=== PATIENT | male | born 1940 | race Caucasian/White ===

== ENCOUNTER 2017-01-06 08:31 | Emergency (ER) | payer OTHER, MEDICARE ==
[2017-01-06 08:37] VITALS: RESP 16
--- NOTE | 2017-01-06 08:50 | CPEKG ---
Heart Rate: 66 RR Interval: 909 P-R Interval: 228 QRSD Interval: 108 QT Interval: 440 QTC Interval: 461 P [place]: 10 QRS [place]: -17 T Wave [place]: 0 EKG Severity - ABNORMAL ECG - EKG Impression: SINUS RHYTHM EKG Impression: FIRST DEGREE AV BLOCK EKG Impression: BORDERLINE T ABNORMALITIES, INFERIOR LEADS Electronically Signed By: Juan Garibay 06-Jan-2017 09:02:52
[2017-01-06] MEDS ORDERED: NS 1,000 ML IV ONE (08:58)
--- NOTE | 2017-01-06 09:02 | EDPHY ---
H & P Stated Complaint: dizzy Time Seen by Provider: 01/06/17 08:46 HPI/ROS: CHIEF COMPLAINT: Vertigo HISTORY OF PRESENT ILLNESS: The patient is a 76-year-old man who comes to the emergency department complaining of vertigo sensation since he woke this morning. He had something similar yesterday but it resolved after about an hour. He thought that it was from taking his sleep medication. Every night he takes Ambien and Zanaflex to help him sleep. Today it has been more persistent however. He states that is worse when he stands up or moves. When he sits still it tends to resolve. He has not had any nausea vomiting. He denies any focal weakness or deficits. He is able to ambulate but states that he feels off balance. He has normal strength. No recent fevers or trauma. No history of CVA. He does have a history of colon and prostate cancer. He denies lightheadedness or feeling faint. REVIEW OF SYSTEMS: Constitutional: denies: chills, fever, recent illness, recent injury EENTM: denies: blurred vision, double vision, nose congestion Respiratory: denies: cough, shortness of breath Cardiac: See HPI denies: chest pain, irregular heart rate, palpitations Gastrointestinal/Abdominal: denies: abdominal pain, diarrhea, nausea, vomiting, blood streaked stools Genitourinary: denies: dysuria, frequency, hematuria, pain Musculoskeletal: denies: joint pain, muscle pain Skin: denies: lesions, rash, jaundice, bruising Neurological: denies: headache, numbness, paresthesia, tingling, dizziness, weakness Hematologic/Lymphatic: denies: blood clots, easy bleeding, easy bruising Immunologic/allergic: denies: HIV/AIDS, transplant EXAM: GENERAL: Well-appearing, well-nourished and in no acute distress. HEAD: Atraumatic, normocephalic. EYES: Very slight nystagmus to the left that fatigued after the 1st test, Pupils equal round and reactive to light, extraocular movements intact, sclera anicteric, conjunctiva are normal. ENT: TMs normal, nares patent, oropharynx clear without exudates. Moist mucous membranes. NECK: Normal range of motion, supple without lymphadenopathy or JVD. LUNGS: Breath sounds clear to auscultation bilaterally and equal. No wheezes rales or rhonchi. HEART: Regular rate and rhythm without murmurs, rubs or gallops. ABDOMEN: Soft, nontender, normoactive bowel sounds. No guarding, no rebound. No masses appreciated. BACK: No CVA tenderness, no spinal tenderness, step-offs or deformities EXTREMITIES: Normal range of motion, no pitting or edema. No clubbing or cyanosis. NEUROLOGICAL: Cranial nerves II through XII grossly intact. Normal speech, normal gait. 5/5 strength, normal movement in all extremities, normal sensation PSYCH: Normal mood, normal affect. SKIN: Warm, dry, normal turgor, no visible rashes or lesions. Source: Patient Exam Limitations: No limitations - Personal History Current Tetanus/Diphtheria Vaccine: Yes Tetanus Vaccine Date: within 10 years - Medical/Surgical History Hx Asthma: No Hx Chronic Respiratory Disease: No Hx Diabetes: No Hx Cardiac Disease: No Hx Renal Disease: No Hx Cirrhosis: No Hx Alcoholism: No Hx HIV/AIDS: No Hx Splenectomy or Spleen Trauma: No Other PMH: colon CA-2008. (unsure of which side) lung lobectomy-2010. liver resection-2012. arrhythmia. TURP, prostate cancer, panic/anxiety attack - Family History Significant Family History: No pertinent family hx - Social History Smoking Status: Former smoker Alcohol Use: Sober Drug Use: None Constitutional: Initial Vital Signs Temperature (C) 36.6 C 01/06/17 08:35 Heart Rate 67 01/06/17 08:35 Respiratory Rate 16 01/06/17 08:35 Blood Pressure 130/100 H 01/06/17 08:35 O2 Sat (%) 95 01/06/17 08:35 O2 Delivery Mode Room Air Allergies/Adverse Reactions: No Allergies [NKDA] Allergy (Verified 01/06/17 08:35) Home Medications: Medication Instructions Recorded Aspirin [Aspirin 81mg (*)] 81 mg PO DAILY 07/22/15 Calcium Carbonate [Oyster Shell 500 mg PO DAILY 07/22/15 Calcium 500 mg (*)] Cholecalciferol Vit D3 [Vitamin D3 2,000 units PO DAILY 07/22/15 (*)] Finasteride [Proscar 5 MG (*)] 5 mg PO DAILY 07/22/15 METOPROLOL SUCCINATE 12.5 mg PO DAILY 07/22/15 Melatonin [Melatonin 3 MG (*)] 3 mg PO HS PRN 07/22/15 Omeprazole [Prilosec 20 mg] 20 mg PO DAILY 07/22/15 ZOLPIDEM TARTRATE 5 mg PO HS PRN 07/22/15 Cholecalciferol Vit D3 [Vitamin D] 2,000 units PO DAILY 11/30/15 Herbals/Supplements -Info Only 1 ea PO DAILY 11/30/15 Simvastatin [Zocor] 20 mg PO DAILY 11/30/15 Tizanidine HCl 4 - 8 mg PO HS PRN 11/30/15 Meclizine HCl [Meclizine HCl 25 mg 25 mg PO BID #20 tab 01/06/17 (RX,OTC)] Medical Decision Making - Diagnostics EKG Interpretation: An EKG obtained and was read and documented in trace view. Please see trace view for full reading and report. Sinus rhythm, first-degree block, no acute ischemic changes, similar to previous Imaging Results: Imaging Impressions Brain MRI 01/06/17 08:58 Impression: Negative for acute abnormality. Underlying atrophy and white matter disease. A small venous angioma and associated gyral thickening identified in the left parietal lobe, unchanged from prior head CT. Results called to Dr. Garibay at 10:45 a.m. Imaging: Discussed imaging studies w/ bilingual call center representative Radiologist ED Course/Re-evaluation: 11:00 a.m. we discussed the MRI results. The patient is relieved as is his . He is feeling much better. He does still have slight vertigo with sitting up but not with lying down on Hallpike maneuver. He does have mild nystagmus primarily to the left. I will start him on meclizine and have him follow up with ENT. 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 He will also discussed this with the ENT. We discussed indications for returning. He denies chest pain or shortness of breath. Differential Diagnosis: Partial list of the Differential diagnosis considered include but were not limited to; vertigo , syncope and although unlikely based on the history and physical exam, I also considered head injury, infection, CVA, seizure. I discussed these differential diagnoses and the plan with the patient as well as the usual and expected course. The patient understands that the diagnosis is provisional and that in medicine we are not always correct and that further workup is often warranted. Usual and customary warnings were given. All of the patient's questions were answered. The patient was instructed to return to the emergency department should the symptoms at all worsen or return, otherwise to followup with the physician as we discussed. - Data Points Laboratory Results: Laboratory Results 01/06/17 08:55 01/06/17 08:55 01/06/17 01/06/17 01/06/17 08:55 08:55 08:55 WBC 7.09 10^3/uL 10^3/uL (3.80-9.50) RBC 5.00 10^6/uL 10^6/uL (4.40-6.38) Hgb 17.0 g/dL g/dL (13.7-17.5) Hct 48.2 % % (40.0-51.0) MCV 96.4 fL fL (81.5-99.8) MCH 34.0 pg pg (27.9-34.1) MCHC 35.3 g/dL g/dL (32.4-36.7) RDW 12.9 % % (11.5-15.2) Plt Count 144 10^3/uL L 10^3/uL (150-400) MPV 9.4 fL fL (8.7-11.7) Neut % (Auto) 64.6 % % (39.3-74.2) Lymph % (Auto) 25.2 % % (15.0-45.0) [place] % (Auto) 6.3 % % (4.5-13.0) Eos % (Auto) 3.1 % % (0.6-7.6) Baso % (Auto) 0.4 % % (0.3-1.7) Nucleat RBC Rel Count 0.0 % % (0.0-0.2) Absolute Neuts (auto) 4.57 10^3/uL 10^3/uL (1.70-6.50) Absolute Lymphs (auto) 1.79 10^3/uL 10^3/uL (1.00-3.00) Absolute Monos (auto) 0.45 10^3/uL 10^3/uL (0.30-0.80) Absolute Eos (auto) 0.22 10^3/uL 10^3/uL (0.03-0.40) Absolute Basos (auto) 0.03 10^3/uL 10^3/uL (0.02-0.10) Absolute Nucleated RBC 0.00 10^3/uL 10^3/uL (0-0.01) Immature Gran % 0.4 % % (0.0-1.1) Immature Gran # 0.03 10^3/uL 10^3/uL (0.00-0.10) PT 12.6 SEC SEC (12.0-15.0) INR 0.95 (0.83-1.16) APTT 23.6 SEC SEC (23.0-38.0) Sodium 141 mEq/L mEq/L (134-144) Potassium 4.1 mEq/L mEq/L (3.5-5.2) Chloride 103 mEq/L mEq/L (97-110) Carbon Dioxide 24 mEq/l mEq/l (22-31) Anion Gap 14 mEq/L mEq/L (8-16) BUN 13 mg/dL mg/dL (7-23) Creatinine 0.9 mg/dL mg/dL (0.7-1.3) Estimated GFR > 60 Glucose 118 mg/dL H mg/dL (70-100) Calcium 9.6 mg/dL mg/dL (8.5-10.4) Troponin I < 0.012 ng/mL ng/mL (0.000-0.034) Medications Given: Discontinued Medications Sodium Chloride (Ns) 1,000 mls @ 0 mls/hr IV EDNOW ONE; Wide Open PRN Reason: Protocol Stop: 01/06/17 08:59 Last Admin: 01/06/17 09:02 Dose: 1,000 mls Departure - Departure Disposition: Home, Routine, Self-Care Clinical Impression: Vertigo Condition: Fair Instructions: Vertigo (ED) Referrals: PAMELA NAPIER [Other] - As per Instructions Oscar Tello MD [Medical Doctor] - As per Instructions Prescriptions: Meclizine HCl [Meclizine HCl 25 mg (RX,OTC)] 25 mg PO BID #20 tab
[2017-01-06 09:05] LABS: % IMMATURE GRANULYOCYTES 0.4 % (0.0-1.1); ABSOLUTE IMMATURE GRANULOCYTES 0.03 10^3/uL (0.00-0.10); ADD DIFF? NO; ADD MORPH? NO; ADD SCAN? NO; ATYPICAL LYMPHOCYTE FLAG 10 (0-99); FRAGMENT RBC FLAG 0 (0-99); HEMATOCRIT 48.2 % (40.0-51.0); LEFT SHIFT FLG 0 (0-99); LIPEMIA HEMOLYSIS FLAG 90 (0-99); MEAN CELL HEMOGLOBIN CONCENTR. 35.3 g/dL (32.4-36.7); MEAN CELL VOLUME 96.4 fL (81.5-99.8); MEAN PLATELET VOLUME 9.4 fL (8.7-11.7); PLATELET CLUMPS FLAG 10 (0-99); PLATELET COUNT 144 10^3/uL (150-400); RED CELL DISTRIBUTION WIDTH 12.9 % (11.5-15.2)
[2017-01-06 09:15] LABS: ANION GAP 14 mEq/L (8-16); CALCIUM 9.6 mg/dL (8.5-10.4); CARBON DIOXIDE 24 mEq/l (22-31); CHLORIDE 103 mEq/L (97-110); CREATININE 0.9 mg/dL (0.7-1.3); GLOMERULAR FILTRATION RATE > 60; GLUCOSE 118 mg/dL (70-100); POTASSIUM 4.1 mEq/L (3.5-5.2); SODIUM 141 mEq/L (134-144)
[2017-01-06 09:20] LABS: INR 0.95 (0.83-1.16); PROTIME(PATIENT) 12.6 SEC (12.0-15.0)
[2017-01-06 09:21] LABS: APTT 23.6 SEC (23.0-38.0)
[2017-01-06 09:26] LABS: TROPONIN I < 0.012 ng/mL (0.000-0.034)
[2017-01-06] MEDS ORDERED: GADOBUTROL 10 ML VIAL IVP ONE (09:35)
[2017-01-06] MEDS ORDERED: MECLIZINE HCL 25 MG TAB PO ONE (11:03)
[2017-01-06 11:20] VITALS: BP 125/74; PULSE 70; TEMP 98.2; O2SAT 98
== END 2017-01-06 11:18 | disposition home or self-care (01) ==
DX: R42 Dizziness and giddiness (principal); E86.9 Volume depletion, unspecified; Z79.82 Long term (current) use of aspirin; Z85.038 Personal history of other malignant neoplasm of large intestine; Z85.46 Personal history of malignant neoplasm of prostate; Z87.891 Personal history of nicotine dependence
CPT/HCPCS: 70553; 93005; 99285; A9585

== ENCOUNTER → 2017-06-02 | Outpatient (CLI) | payer OTHER, MEDICARE ==
[~2017-06-02] MED LIST: IOPAMIDOL (ISOVUE-300) 100 ML BTL ONE
== END ==
LOC: FIMAGING 10:02
PROVIDERS: ATTEND Specialist
DX: R31.0 Gross hematuria (principal); K76.89 Other specified diseases of liver; K40.90 Unilateral inguinal hernia, without obstruction or gangrene, not specified as recurrent; M48.061 Spinal stenosis, lumbar region without neurogenic claudication
CPT/HCPCS: 74178; Q9967

== ENCOUNTER 2017-09-25 17:24 | Emergency (ER) | payer OTHER, MEDICARE ==
[2017-09-25] MEDS ORDERED: NS 1,000 ML IV ONE (18:11)
--- NOTE | 2017-09-25 18:15 | EDPHY ---
H & P Stated Complaint: syncopal episode last night, 2 today, blood urine for 4 days Time Seen by Provider: 09/25/17 17:57 HPI/ROS: CHIEF COMPLAINT: Micturition syncope x3 HISTORY OF PRESENT ILLNESS: The patient is a 76-year-old man who had micturition presyncope last night and twice more today. He has a history of prostate hypertrophy status post TURP. He states that he frequently has hematuria but he usually resolves after a day or 2. It is been present for the last 3 days. He states that he is also urinating about every 15 min because it is irritating. Last night while urinating he felt lightheaded and had sit down. His states that he looked pale and diaphoretic. She called 911 and he had normal blood pressure an EKG done and refused transport. He did not vomit or have any GI symptoms. He did not lose consciousness. He did not have any trauma pain He denies palpitations or chest pain. The same thing happened twice today to a lesser degree. He does have a history of arrhythmia of uncertain etiology and takes metoprolol for this although he forgot his metoprolol the last 2 days. He also has a history of metastatic colon cancer metastasized to the liver and lung with partial colon resection, liver section and left lower lobe of lung resection. He has not been febrile. He has been eating normally. No fevers. He does state that he has been easily winded while walking up the stairs today. He has also been able to urinate several times without having any presyncopal symptoms. REVIEW OF SYSTEMS: Constitutional: denies: chills, fever, recent illness, recent injury EENTM: denies: blurred vision, double vision, nose congestion Respiratory: denies: cough, shortness of breath Cardiac: See HPI denies: chest pain, irregular heart rate, palpitations Gastrointestinal/Abdominal: denies: abdominal pain, diarrhea, nausea, vomiting, blood streaked stools Genitourinary: See HPI denies: dysuria, pain Musculoskeletal: denies: joint pain, muscle pain Skin: denies: lesions, rash, jaundice, bruising Neurological: denies: headache, numbness, paresthesia, tingling, dizziness, weakness Hematologic/Lymphatic: denies: blood clots, easy bleeding, easy bruising Immunologic/allergic: denies: HIV/AIDS, transplant EXAM: GENERAL: Well-appearing, well-nourished and in no acute distress. HEAD: Atraumatic, normocephalic. EYES: Pupils equal round and reactive to light, extraocular movements intact, sclera anicteric, conjunctiva are normal. ENT: TMs normal, nares patent, oropharynx clear without exudates. Moist mucous membranes. NECK: Normal range of motion, supple without lymphadenopathy or JVD. LUNGS: Breath sounds clear to auscultation bilaterally and equal. No wheezes rales or rhonchi. HEART: Regular rate and rhythm without murmurs, rubs or gallops. ABDOMEN: Soft, nontender, normoactive bowel sounds. No guarding, no rebound. No masses appreciated. BACK: No CVA tenderness, no spinal tenderness, step-offs or deformities EXTREMITIES: Normal range of motion, no pitting or edema. No clubbing or cyanosis. NEUROLOGICAL: Cranial nerves II through XII grossly intact. Normal speech, normal gait. 5/5 strength, normal movement in all extremities, normal sensation PSYCH: Normal mood, normal affect. SKIN: Warm, dry, normal turgor, no visible rashes or lesions. Source: Patient Exam Limitations: No limitations - Personal History Tetanus Vaccine Date: within 10 years - Medical/Surgical History Hx Asthma: No Hx Chronic Respiratory Disease: No Hx Diabetes: No Hx Cardiac Disease: No Hx Renal Disease: No Hx Cirrhosis: No Hx Alcoholism: No Hx HIV/AIDS: No Hx Splenectomy or Spleen Trauma: No Other PMH: colon CA-2008. lung lobectomy-2010. liver resection-2012. arrhythmia. TURP, prostate cancer, panic/anxiety attack - Family History Significant Family History: No pertinent family hx - Social History Smoking Status: Former smoker Alcohol Use: Sober Constitutional: Initial Vital Signs Temperature (C) 37 C 09/25/17 17:28 Heart Rate 72 09/25/17 17:28 Respiratory Rate 19 09/25/17 17:28 Blood Pressure 120/86 H 09/25/17 17:28 O2 Sat (%) 96 09/25/17 17:28 O2 Delivery Mode Room Air Allergies/Adverse Reactions: No Allergies [NKDA] Allergy (Verified 09/25/17 17:26) Home Medications: Medication Instructions Recorded Aspirin [Aspirin 81mg (*)] 81 mg PO DAILY 07/22/15 Calcium Carbonate [Oyster Shell 500 mg PO DAILY 07/22/15 Calcium 500 mg (*)] Cholecalciferol Vit D3 [Vitamin D3 2,000 units PO DAILY 07/22/15 (*)] Finasteride [Proscar 5 MG (*)] 5 mg PO DAILY 07/22/15 METOPROLOL SUCCINATE 12.5 mg PO DAILY 07/22/15 Melatonin [Melatonin 3 MG (*)] 3 mg PO HS PRN 07/22/15 Omeprazole [Prilosec 20 mg] 20 mg PO DAILY 07/22/15 ZOLPIDEM TARTRATE 5 mg PO HS PRN 07/22/15 Cholecalciferol Vit D3 [Vitamin D] 2,000 units PO DAILY 11/30/15 Herbals/Supplements -Info Only 1 ea PO DAILY 11/30/15 Simvastatin [Zocor] 20 mg PO DAILY 11/30/15 Tizanidine HCl 4 - 8 mg PO HS PRN 11/30/15 Meclizine HCl [Meclizine HCl 25 mg 25 mg PO BID #20 tab 01/06/17 (RX,OTC)] Medical Decision Making - Diagnostics EKG Interpretation: An EKG obtained and was read and documented in trace view. Please see trace view for full reading and report. Sinus rhythm, no acute ischemic changes or arrhythmias ED Course/Re-evaluation: 7:20 p.m. we discussed the patient's lab work which is reassuring. His urinalysis is difficult to interpret because of the hematuria. No bacteria or nitrates. He denies pain or fever. He states that he is starting to pass clots in his urine which is typical for him when it is about to stop. He feels much better and is eager to go home. I offered admission or observation but he declines. His is with him. We discussed micturition syncope. I encouraged him to sit down when he urinates. I encouraged him to return if he has any palpitations or chest pain or shortness of breath. He will follow up with Dr. Simeon next week. We agreed to send his urine for cultures. Differential Diagnosis: Partial list of the Differential diagnosis considered include but were not limited to; hematuria, micturition syncope, urinary tract infection and although unlikely based on the history and physical exam, I also considered arrhythmia, acute coronary disease, PE, CVA. I discussed these differential diagnoses and the plan with the patient as well as the usual and expected course. The patient understands that the diagnosis is provisional and that in medicine we are not always correct and that further workup is often warranted. Usual and customary warnings were given. All of the patient's questions were answered. The patient was instructed to return to the emergency department should the symptoms at all worsen or return, otherwise to followup with the physician as we discussed. - Data Points Laboratory Results: Laboratory Results 09/25/17 18:18 09/25/17 18:18 09/25/17 09/25/17 09/25/17 18:50 18:18 18:18 WBC RBC Hgb Hct MCV MCH MCHC RDW Plt Count MPV Neut % (Auto) Lymph % (Auto) [place] % (Auto) Eos % (Auto) Baso % (Auto) Nucleat RBC Rel Count Absolute Neuts (auto) Absolute Lymphs (auto) Absolute Monos (auto) Absolute Eos (auto) Absolute Basos (auto) Absolute Nucleated RBC Immature Gran % Immature Gran # PT 13.8 SEC SEC (12.0-15.0) INR 1.04 (0.83-1.16) APTT 22.8 SEC L SEC (23.0-38.0) Sodium 136 mEq/L mEq/L (135-145) Potassium 4.4 mEq/L mEq/L (3.5-5.2) Chloride 101 mEq/L mEq/L (97-110) Carbon Dioxide 23 mEq/l mEq/l (22-31) Anion Gap 12 mEq/L mEq/L (8-16) BUN 15 mg/dL mg/dL (7-23) Creatinine 0.8 mg/dL mg/dL (0.7-1.3) Estimated GFR > 60 Glucose 114 mg/dL H mg/dL (70-100) Calcium 9.2 mg/dL mg/dL (8.5-10.4) Total Bilirubin 1.3 mg/dL mg/dL (0.1-1.4) Conjugated Bilirubin 0.3 mg/dL mg/dL (0.0-0.5) Unconjugated Bilirubin 1.0 mg/dL mg/dL (0.0-1.1) AST 24 IU/L IU/L (17-59) ALT 32 IU/L IU/L (21-72) Alkaline Phosphatase 47 IU/L IU/L (38-126) Total Protein 7.3 g/dL g/dL (6.3-8.2) Albumin 3.9 g/dL g/dL (3.5-5.0) Lipase 68 IU/L IU/L (23-300) Urine Color RED Urine Appearance TURBID Urine pH TNP Ur Specific [place] TNP Urine Protein TNP Urine Ketones TNP Urine Blood TNP Urine Nitrate TNP Urine Bilirubin TNP Urine Urobilinogen TNP Ur Leukocyte Esterase TNP Urine RBC 50-182 /hpf H /hpf (0-3) Urine WBC 50-182 /hpf H /hpf (0-3) Ur Epithelial Cells NONE SEEN /lpf /lpf (NONE-1+) Urine Mucus 3+ /lpf H /lpf (NONE-1+) Urine Glucose TNP 09/25/17 18:18 WBC 10.38 10^3/uL H 10^3/uL (3.80-9.50) RBC 4.21 10^6/uL L 10^6/uL (4.40-6.38) Hgb 14.1 g/dL g/dL (13.7-17.5) Hct 39.3 % L % (40.0-51.0) MCV 93.3 fL fL (81.5-99.8) MCH 33.5 pg pg (27.9-34.1) MCHC 35.9 g/dL g/dL (32.4-36.7) RDW 13.1 % % (11.5-15.2) Plt Count 164 10^3/uL 10^3/uL (150-400) MPV 9.4 fL fL (8.7-11.7) Neut % (Auto) 72.6 % % (39.3-74.2) Lymph % (Auto) 19.9 % % (15.0-45.0) [place] % (Auto) 6.6 % % (4.5-13.0) Eos % (Auto) 0.4 % L % (0.6-7.6) Baso % (Auto) 0.3 % % (0.3-1.7) Nucleat RBC Rel Count 0.0 % % (0.0-0.2) Absolute Neuts (auto) 7.54 10^3/uL H 10^3/uL (1.70-6.50) Absolute Lymphs (auto) 2.07 10^3/uL 10^3/uL (1.00-3.00) Absolute Monos (auto) 0.68 10^3/uL 10^3/uL (0.30-0.80) Absolute Eos (auto) 0.04 10^3/uL 10^3/uL (0.03-0.40) Absolute Basos (auto) 0.03 10^3/uL 10^3/uL (0.02-0.10) Absolute Nucleated RBC 0.00 10^3/uL 10^3/uL (0-0.01) Immature Gran % 0.2 % % (0.0-1.1) Immature Gran # 0.02 10^3/uL 10^3/uL (0.00-0.10) PT INR APTT Sodium Potassium Chloride Carbon Dioxide Anion Gap BUN Creatinine Estimated GFR Glucose Calcium Total Bilirubin Conjugated Bilirubin Unconjugated Bilirubin AST ALT Alkaline Phosphatase Total Protein Albumin Lipase Urine Color Urine Appearance Urine pH Ur Specific [place] Urine Protein Urine Ketones Urine Blood Urine Nitrate Urine Bilirubin Urine Urobilinogen Ur Leukocyte Esterase Urine RBC Urine WBC Ur Epithelial Cells Urine Mucus Urine Glucose Medications Given: Discontinued Medications Sodium Chloride (Ns) 1,000 mls @ 0 mls/hr IV EDNOW ONE; Wide Open PRN Reason: Protocol Stop: 09/25/17 18:12 Last Admin: 09/25/17 18:55 Dose: 1,000 mls Departure - Departure Disposition: Home, Routine, Self-Care Clinical Impression: Micturition syncope Condition: Fair Instructions: Syncope (ED), Hematuria (ED) Referrals: RONI NAPIER [Other] - As per Instructions Jamaal Simeon MD [Medical Doctor] - As per Instructions
[2017-09-25 18:27] LABS: PLATELET COUNT 164 10^3/uL (150-400)
--- NOTE | 2017-09-25 18:30 | CPEKG ---
Heart Rate: 77 RR Interval: 779 P-R Interval: 196 QRSD Interval: 96 QT Interval: 380 QTC Interval: 431 P [place]: 3 QRS [place]: -11 T Wave [place]: 5 EKG Severity - NORMAL ECG - EKG Impression: SINUS RHYTHM Electronically Signed By: Juan Garibay 25-Sep-2017 18:32:12
[2017-09-25 18:35] LABS: INR 1.04 (0.83-1.16); PROTIME(PATIENT) 13.8 SEC (12.0-15.0)
[2017-09-25 19:40] VITALS: BP 115/79
== END 2017-09-25 19:37 | disposition home or self-care (01) ==
DX: R55 Syncope and collapse (principal); E86.9 Volume depletion, unspecified; Z79.82 Long term (current) use of aspirin; Z85.038 Personal history of other malignant neoplasm of large intestine; Z85.46 Personal history of malignant neoplasm of prostate; Z87.891 Personal history of nicotine dependence

== ENCOUNTER → 2017-09-30 | Outpatient (CLI) | payer OTHER, MEDICARE | LOC: CIMAGING 08:27 | DX: R91.1 Solitary pulmonary nodule (principal); N40.0 Benign prostatic hyperplasia without lower urinary tract symptoms; K57.30 Diverticulosis of large intestine without perforation or abscess without bleeding; N20.0 Calculus of kidney; Z85.038 Personal history of other malignant neoplasm of large intestine; Z85.118 Personal history of other malignant neoplasm of bronchus and lung; Z85.05 Personal history of malignant neoplasm of liver; Z90.2 Acquired absence of lung [part of]; Z90.49 Acquired absence of other specified parts of digestive tract | CPT/HCPCS: 71260-PO; 74177-PO; Q9967 ==

== ENCOUNTER 2017-10-18 09:38 | Emergency (ER) | payer OTHER, MEDICARE ==
[2017-10-18 09:57] VITALS: BP 125/79
--- NOTE | 2017-10-18 10:33 | EDPHY ---
H & P Stated Complaint: urinary frequency and pain - Personal History Current Tetanus/Diphtheria Vaccine: Yes Current Tetanus Diphtheria and Acellular Pertussis (TDAP): Yes Tetanus Vaccine Date: within 10 years - Medical/Surgical History Hx Asthma: No Hx Chronic Respiratory Disease: No Hx Diabetes: No Hx Cardiac Disease: Yes Hx Renal Disease: No Hx Cirrhosis: No Hx Alcoholism: No Hx HIV/AIDS: No Hx Splenectomy or Spleen Trauma: No Other PMH: colon CA-2008. lung lobectomy-2010. liver resection-2012. arrhythmia. TURP, prostate cancer, panic/anxiety attack - Social History Smoking Status: Former smoker Time Seen by Provider: 10/18/17 09:56 HPI/ROS: CHIEF COMPLAINT: "I think I have urinary tract infection" HISTORY OF PRESENT ILLNESS: 76-year-old male history of prostate hypertrophy followed by Dr. Jamaal Simeon complaining of hematuria increased frequency, dysuria for the past 2 days. No back or flank pain. No fever or chills. No abdominal pain. No perineal pain. No rectal pain. No pain with defecation. PRIMARY CARE PROVIDER: REVIEW OF SYSTEMS: A ten point review of systems was performed and is negative with the exception of the items mentioned in the HPI PAST MEDICAL & SURGICAL HISTORY: History of prostate hypertrophy. History of colon cancer. History of liver resection. SOCIAL HISTORY: Nonsmoker . PHYSICAL EXAM (Prior to examination, patient consented to physical exam, hands were washed and my usual and customary physical exam procedures followed) 1) GENERAL: Well-developed, well-nourished, alert and oriented. Appears to be in no acute distress. Smiling, reading newspaper sitting upright appears well. 2) HEAD: Normocephalic, atraumatic 3) HEENT: Pupils equal, round, reactive to light bilaterally. Sclera anicteric. 4) NECK: Full range of motion, no meningeal signs. 5) LUNGS: Clear auscultation bilaterally, no wheezes, no rhonchi, no retractions. 6) HEART: Regular rate and rhythm, no murmur, no heave, no gallop. 7) ABDOMEN: No guarding, no rebound, no focal tenderness, negative McBurney's, negative Lieberman's, negative Rovsing's, negative peritoneal sign, 8) MUSCULOSKELETAL: Moving all extremities, no focal areas of tenderness, no obvious trauma. No peripheral edema or discoloration. 9) BACK: No CVA tenderness, no midline vertebral tenderness, no fluctuance, no step-off, no obvious trauma, no visual or palpable abnormality. 10) SKIN: No rash, no petechiae. [11) : Normal male external genitalia no urethral discharge, no discoloration or tenderness to the penis. Scrotum testicles nontender with no discoloration no evidence of cellulitis or Nori's gangrene. Perineal examination unremarkable no tenderness no crepitus. DIFFERENTIAL DIAGNOSIS: In no particular include but limited to nephrolithiasis, cystitis, pyelonephritis, urosepsis (Bryant Faith) Constitutional: Initial Vital Signs Heart Rate 71 10/18/17 09:45 Respiratory Rate 16 10/18/17 09:45 Blood Pressure 125/79 H 10/18/17 09:45 O2 Sat (%) 95 10/18/17 09:45 O2 Delivery Mode Room Air Allergies/Adverse Reactions: No Allergies [NKDA] Allergy (Verified 10/18/17 09:44) Home Medications: Medication Instructions Recorded Aspirin [Aspirin 81mg (*)] 81 mg PO DAILY 07/22/15 Calcium Carbonate [Oyster Shell 500 mg PO DAILY 07/22/15 Calcium 500 mg (*)] Cholecalciferol Vit D3 [Vitamin D3 2,000 units PO DAILY 07/22/15 (*)] Finasteride [Proscar 5 MG (*)] 5 mg PO DAILY 07/22/15 METOPROLOL SUCCINATE 12.5 mg PO DAILY 07/22/15 Melatonin [Melatonin 3 MG (*)] 3 mg PO HS PRN 07/22/15 Omeprazole [Prilosec 20 mg] 20 mg PO DAILY 07/22/15 ZOLPIDEM TARTRATE 5 mg PO HS PRN 07/22/15 Cholecalciferol Vit D3 [Vitamin D] 2,000 units PO DAILY 11/30/15 Herbals/Supplements -Info Only 1 ea PO DAILY 11/30/15 Simvastatin [Zocor] 20 mg PO DAILY 11/30/15 Tizanidine HCl 4 - 8 mg PO HS PRN 11/30/15 Meclizine HCl [Meclizine HCl 25 mg 25 mg PO BID #20 tab 01/06/17 (RX,OTC)] Cephalexin [Keflex] 500 mg PO TID 7 Days cap 10/18/17 Cialis 10/18/17 Phenazopyridine HCl [Pyridium] 200 mg PO PC #10 tab 10/18/17 Medical Decision Making ED Course/Re-evaluation: Patient was re-evaluated with serial examinations and old medical records reviewed. Here in emergency department he is found to positive pyuria. Doubt pyelonephritis. Doubt nephrolithiasis. Doubt urosepsis. Doubt diverticulitis. I think the patient can be discharged with close follow-up with urologist Dr. Jamaal Simeon. Urine has been cultured. Started on antibiotics and Pyridium. He feels comfortable being discharged. Usual and customary discharge precautions and instructions provided. All questions and concerns addressed by myself. I saw this patient independently based on established practice protocols. Care of patient under supervision of secondary supervising physician Dr Robbins (Bryant Faith) The patient was evaluated and managed by the physician assistant pressman. I have reviewed this chart and I agree with the findings and plan of care as documented , as indicated by my signature. I am the secondary supervising physician. ( Lorraine Robbins) - Data Points Microbiology Results: MICROBIOLOGY 10/18/17 09:50 Urine,Clean Catch Urine Culture - Preliminary Departure - Departure Disposition: Home, Routine, Self-Care Clinical Impression: Urinary tract infection Condition: Good Instructions: Urinary Tract Infection in Men (ED) Additional Instructions: Return to the ER immediately if you experience fevers/chills, flu like symptoms , inability to tolerate oral intake, nausea or vomiting, or any other symptoms that concern you. Referrals: RONI NAPIER [Other] - As per Instructions Jamaal Simeon MD [Medical Doctor] - 2-3 days, call for appt. Prescriptions: Cephalexin [Keflex] 500 mg PO TID 7 Days cap Phenazopyridine HCl [Pyridium] 200 mg PO PC #10 tab
== END 2017-10-18 10:47 | disposition home or self-care (01) ==
DX: N39.0 Urinary tract infection, site not specified (principal); B96.89 Other specified bacterial agents as the cause of diseases classified elsewhere; Z85.038 Personal history of other malignant neoplasm of large intestine; Z87.891 Personal history of nicotine dependence

== ENCOUNTER 2017-10-26 10:07 | Emergency (ER) | payer OTHER, MEDICARE ==
--- NOTE | 2017-10-26 11:07 | EDPHY ---
H & P Stated Complaint: urethral pain Time Seen by Provider: 10/26/17 11:06 HPI/ROS: HPI: This is a 76-year-old male who presents with Chief Complaint: urethral pain Location: Urethra/penile shaft Quality: Pain and spasm Duration: Several hours Signs and Symptoms: no fever, no nausea, no vomiting, no hematemesis, no blood in stool, no abdominal bloating, no diarrhea, no back pain, no urinary symptoms , no testicular/groin pain, no indigestion, no chest pain, no shortness of breath Timing: Acute Severity: Moderate Context: Patient has a history of BPH, status post TURP secondary to prostate cancer, urinary tract infection and Takes Proscar daily presents with complaints of urethra/penile shaft pain and spasm for the last several hours. Patient is requesting of"pain pill"and "Pyridium." Patient reports that he has a history of a kidney stone on the right side that he may be passing but is adamant that he does not want any laboratory studies or repeat CT imaging. He is willing to give a urine sample for further analysis. He recently completed a 2 week course of antibiotics for UTI/prostatitis. He was seen in this emergency room on 10/18/2017 and diagnosed with pyuria. He reports that he does not have any blood in his urine. Patient denies fever/back pain/penile discharge. He follows with Dr. Jamaal Simeon, urology. He called the office today but was unable to get an appointment. Patient is eating and drinking without any difficulty. Chart review shows CT abdomen and pelvis scan on 2017 showed 2 mm nephrolithiasis without obstruction; markedly enlarged prostate. Modifying Factors: None Comment: ROS: see HPI Constitutional: No fever, no chills, no weight loss Eyes: No blurred vision Respiratory: No shortness of breath, no cough Cardiovascular: No chest pain, no palpitations Gastrointestinal: No nausea, no vomiting, no diarrhea, no hematemesis, no blood in stool Genitourinary: No dysuria, no blood in urine Extremities: No myalgias, no edema Neurologic: No weakness, no numbness Skin: No rashes, no petechiae Hematologic: No bruising, no bleeding MEDICAL/SURGICAL/SOCIAL HISTORY: Medical/surgical history: colon CA-2009 lung lobectomy-2010 liver resection-2012 arrhythmia TURP, prostate cancer, panic/anxiety attack Social history: Retired. Family history noncontributory. CONSTITUTIONAL: Extremely well-appearing elderly white male, awake and alert, no obvious distress HEENT: Atraumatic and normocephalic, PERRL, EOMI. Nares patent; no rhinorrhea; no nasal mucosal edema. Tympanic membranes clear. Oropharynx clear, no exudate and moist pink mucosa. Airway patent. No lymphadenopathy. No meningismus. Cardiovascular: Normal S1/S2, regular rate, regular rhythm, without murmur rub or gallop. PULMONARY/CHEST: Symmetrical and nontender. Clear to auscultation bilaterally. Good air movement. No accessory muscle usage. ABDOMEN: Soft, nondistended, nontender, no rebound, no guarding, no peritoneal signs, no masses or organomegaly. No CVAT. Male : circumcised penis, bilateral descended testes, no testicular swelling, no testicular masses, no penile discharge, no lesions, negative Prehn's sign. EXTREMITIES: 2/2 pulses, strength 5/5, no deformities, no clubbing, no cyanosis or edema. NEUROLOGICAL: no focal neuro deficits. GCS 15. SKIN: Warm and dry, pallor, no erythema. no rash. Good capillary refill. Source: Patient Exam Limitations: No limitations - Personal History Current Tetanus/Diphtheria Vaccine: Yes Current Tetanus Diphtheria and Acellular Pertussis (TDAP): Yes Tetanus Vaccine Date: within 10 years - Medical/Surgical History Hx Asthma: No Hx Chronic Respiratory Disease: No Hx Diabetes: No Hx Cardiac Disease: Yes Hx Renal Disease: No Hx Cirrhosis: No Hx Alcoholism: No Hx HIV/AIDS: No Hx Splenectomy or Spleen Trauma: No Other PMH: colon CA-2008. lung lobectomy-2010. liver resection-2012. arrhythmia. TURP, prostate cancer, panic/anxiety attack - Social History Smoking Status: Former smoker Constitutional: Initial Vital Signs Temperature (C) 36.7 C 10/26/17 10:28 Heart Rate 75 10/26/17 10:28 Respiratory Rate 16 10/26/17 10:28 Blood Pressure 125/80 H 10/26/17 10:28 O2 Sat (%) 97 10/26/17 10:28 O2 Delivery Mode Room Air Allergies/Adverse Reactions: No Allergies [NKDA] Allergy (Verified 10/26/17 10:27) Home Medications: Medication Instructions Recorded Aspirin [Aspirin 81mg (*)] 81 mg PO DAILY 07/22/15 Calcium Carbonate [Oyster Shell 500 mg PO DAILY 07/22/15 Calcium 500 mg (*)] Cholecalciferol Vit D3 [Vitamin D3 2,000 units PO DAILY 07/22/15 (*)] Finasteride [Proscar 5 MG (*)] 5 mg PO DAILY 07/22/15 METOPROLOL SUCCINATE 12.5 mg PO DAILY 07/22/15 Melatonin [Melatonin 3 MG (*)] 3 mg PO HS PRN 07/22/15 Omeprazole [Prilosec 20 mg] 20 mg PO DAILY 07/22/15 ZOLPIDEM TARTRATE 5 mg PO HS PRN 07/22/15 Cholecalciferol Vit D3 [Vitamin D] 2,000 units PO DAILY 11/30/15 Herbals/Supplements -Info Only 1 ea PO DAILY 11/30/15 Simvastatin [Zocor] 20 mg PO DAILY 11/30/15 Tizanidine HCl 4 - 8 mg PO HS PRN 11/30/15 Meclizine HCl [Meclizine HCl 25 mg 25 mg PO BID #20 tab 01/06/17 (RX,OTC)] Cialis 10/18/17 Phenazopyridine HCl [Pyridium] 200 mg PO PC #10 tab 10/18/17 Phenazopyridine HCl [Pyridium] 200 mg PO TID #6 tab 10/26/17 oxyCODONE/APAP 5/325 [Percocet 1 - 2 tab PO Q4H PRN #10 tab 10/26/17 5/325 (*)] Medical Decision Making ED Course/Re-evaluation: Vital signs reviewed upon arrival in stable. I offered patient laboratory studies, IV fluids, IV medications, and CT abdomen and pelvis scanning and he adamantly declined. He reports that all he needs is "the pill that makes his urine orange and pain pill." Patient given Pyridium and Percocet per request. Urinalysis shows 1+ protein, 3+ blood, RBC 3-5. This is significantly improved when compared to the urine sample taken on 10/18/2017. Patient will be given a prescription for peridium and Percocet per request with Urology follow-up. Abdomen is soft and nontender doubt surgical process. Patient is very adamant about not having a complete workup and just having a prescription. Patient is tolerating p.o. This patient was seen under the supervision of my secondary supervising physician. I evaluated care for this patient independently. Discussed this patient with Dr. Pulliam who did not see the patient. Differential Diagnosis: Differential diagnosis includes but is not limited to urinary tract infection, prostatitis, bladder spasm, nephrolithiasis, ureterolithiasis. - Data Points Laboratory Results: 10/26/17 10:15 Urine Color YELLOW Urine Appearance HAZY Urine pH 5.0 (5.0-7.5) Ur Specific [place] 1.002 (1.002-1.030) Urine Protein 1+ H (NEGATIVE) Urine Ketones NEGATIVE (NEGATIVE) Urine Blood 3+ H (NEGATIVE) Urine Nitrate NEGATIVE (NEGATIVE) Urine Bilirubin NEGATIVE (NEGATIVE) Urine Urobilinogen NEGATIVE EU EU (0.2-1.0) Ur Leukocyte Esterase NEGATIVE (NEGATIVE) Urine RBC 3-5 /hpf H /hpf (0-3) Urine WBC 0-1 /hpf /hpf (0-3) Ur Epithelial Cells NONE SEEN /lpf /lpf (NONE-1+) Urine Mucus TRACE /lpf /lpf (NONE-1+) Urine Glucose NEGATIVE (NEGATIVE) Medications Given: Discontinued Medications Oxycodone/Acetaminophen (Percocet 5/325) 1 tab PO EDNOW ONE Stop: 10/26/17 11:18 Last Admin: 10/26/17 11:26 Dose: 1 tab Phenazopyridine HCl (Pyridium) 200 mg PO EDNOW ONE Stop: 10/26/17 11:18 Last Admin: 10/26/17 11:26 Dose: 200 mg Departure - Departure Disposition: Home, Routine, Self-Care Clinical Impression: Dysuria, BPH w/o urinary obs/LUTS Condition: Good Instructions: Benign Prostatic Hypertrophy (ED), Dysuria (ED) Additional Instructions: Consume a minimum of 8-10 glasses of water or electrolyte fluid replacement drinks that include Gatorade, Powerade, Pedialyte. Take Pyridium 3 times daily for the next 2 days as needed for dysuria. Take Percocet 1 tab every 4-6 hours as needed for severe, breakthrough pain. Follow-up with Urology in the next 2-3 days. Referrals: RONI NAPIER [Other] - As per Instructions Jamaal Simeon MD [Medical Doctor] - 2-3 days without fail Prescriptions: oxyCODONE/APAP 5/325 [Percocet 5/325 (*)] 1 - 2 tab PO Q4H PRN #10 tab PRN Reason: Pain, Severe Phenazopyridine HCl [Pyridium] 200 mg PO TID #6 tab
[2017-10-26] MEDS ORDERED: OXYCODONE/APAP 5/325 TAB PO ONE (11:17)
[2017-10-26] MEDS ORDERED: PHENAZOPYRIDINE HCL 200 MG TAB PO ONE (11:17)
[2017-10-26 11:35] VITALS: BP 130/87
== END 2017-10-26 11:34 | disposition home or self-care (01) ==
DX: N40.0 Benign prostatic hyperplasia without lower urinary tract symptoms (principal); Z79.82 Long term (current) use of aspirin; Z85.038 Personal history of other malignant neoplasm of large intestine; Z85.46 Personal history of malignant neoplasm of prostate; Z87.891 Personal history of nicotine dependence

== ENCOUNTER 2017-11-05 11:12 | Inpatient (IN) | payer OTHER, MEDICARE ==
--- NOTE | 2017-11-04 17:04 | GHP ---
[f rep st] PREOP HISTORY AND PHYSICAL DATE OF ADMISSION: 11/05/2017 ADMISSION DIAGNOSIS: Prostatic hypertrophy with prostatic hemorrhage and urinary retention. HISTORY OF PRESENT ILLNESS: This is a 76-year-old gentleman who has been seen by Dr. Garcia in the p ast. He has had multiple episodes of passing blood clots that were treated with finasteride without success. At the present time, he is admitted for suprapubic prostatectomy. He has had a CAT scan of the abdomen and pelvis in September 2017, that revealed prostatomegaly and small right renal stone. He adan d cystoscopy, transrectal ultrasound which also confirmed the above findings. He has also had mucosa l inflammation of the prostate. His transrectal ultrasound that was done in September 2014, revealed a pro state that was 220 g in size and we had a cystoscopy in September 2017, that revealed he had inflammatory p olyps of the prostate and a big, hypertrophied, hypervascular intravesical lobe of the prostate with obstruction. At the present time, because of his constant bleeding and pain and discomfort, he has e lected to undergo a suprapubic prostatectomy. Written and verbal consent was obtained and indication , complications, and options were discussed. PAST MEDICAL HISTORY: He has had colon cancer with liver metastasis and significant BPH issues. PAST SURGERIES: Liver, lung, and prostate surgery. MEDICATION LIST: Aspirin, finasteride, ketorolac, metoprolol, simvastatin. ALLERGIES: No known drug allergies. SOCIAL HISTORY: Social drinker, former smoker, and he is . REVIEW OF SYSTEMS: Negative cardiac, respiratory, GI, and endocrine presently. PHYSICAL EXAM: VITAL SIGNS: Blood pressure been 111/76, pulse 84 and regular, O2 saturation 94% on room air. Stable. CHEST: Clear. HEART: Regular rate and rhythm. ABDOMEN: Normal. No organomega ly, rebound, or guarding. EXTREMITIES: Lower extremities are normal. IMPRESSION: He has had small volume postvoid residuals, but his main problem is prostatomegaly, thic kened bladder with recurrent hematuria. /[id number]/MODL
--- NOTE | 2017-11-05 07:06 | PDHPUP ---
History & Physical Update H&P update statement: This history and physical update is based on an assessment of the patient which was completed after admission or registration (within 24 hours), but prior to the surgery/procedure. H&P update: H&P reviewed & patient examined, no change in patient's condition since H&P completed
[2017-11-05] MEDS ORDERED: LR 1,000 ML IV ONE (11:26)
[2017-11-05] MEDS ORDERED: ceFAZolin 2 GM/SWFI 2 GM/20 ML SYR IVP ONE (11:26)
[2017-11-05] MEDS ORDERED: ceFAZolin 2 GM/DEXTROSE 100 ML IV ONE (12:00)
[2017-11-05] MEDS ORDERED: BUPIVACAINE 0.25% 30 ML SDV ONE (12:01)
[2017-11-05] MEDS ORDERED: MIDAZOLAM 2 MG/2 ML VIAL IVP ONE (13:32)
--- NOTE | 2017-11-05 13:32 | PDANEPAE ---
ANE History of Present Illness 76 year old with prostate ca ANE Past Medical History - Cardiovascular History Hx Hypertension: Yes Hx Arrhythmias: Yes Hx Chest Pain: No Hx Coronary Artery / Peripheral Vascular Disease: No Hx CHF / Valvular Disease: No Hx Palpitations: No - Pulmonary History Hx COPD: No Hx Asthma/Reactive Airway Disease: No Hx Recent Upper Respiratory Infection: No Hx Oxygen in Use at Home: No Hx Sleep Apnea: No - Neurologic History Hx Cerebrovascular Accident: No Hx Seizures: No Hx Dementia: No - Endocrine History Hx Diabetes: No - Renal History Hx Renal Disorders: No - Liver History Hx Hepatic Disorders: Yes Hepatic History Comment: liver lobe removed r/t colon cancer - Neurological & Psychiatric Hx Hx Neurological and Psychiatric Disorders: No - Cancer History Hx Cancer: Yes Cancer History Comment: colon cancer - Congenital Disorder History Hx Congenital Disorders: No - GI History Hx Gastrointestinal Disorders: Yes Gastrointestinal History Comment: reflux, gerd - Other Health History Other Health History: none - Chronic Pain History Chronic Pain: No - Surgical History Prior Surgeries: none ANE Review of Systems Review of systems is: negative Review of Systems: - Exercise capacity METS (RN): 5 METS ANE Patient History - Allergies Allergies/Adverse Reactions: No Allergies [NKDA] Allergy (Verified 11/04/17 16:08) - Home Medications Home medications: home medication list seen and reviewed Home Medications: Aspirin [Aspirin 81mg (*)] 07/22/15 [Last Taken 11/30/15] Calcium Carbonate [Oyster Shell Calcium 500 mg (*)] 07/22/15 [Last Taken ] Cholecalciferol Vit D3 [Vitamin D3 (*)] 07/22/15 [Last Taken 11/30/15] Finasteride [Proscar 5 MG (*)] 07/22/15 [Last Taken 11/05/17] METOPROLOL SUCCINATE 07/22/15 [Last Taken 11/04/17] Melatonin [Melatonin 3 MG (*)] 07/22/15 [Last Taken 3 Months Ago ~08/05/17] Omeprazole [Prilosec 20 mg] 07/22/15 [Last Taken 11/05/17] ZOLPIDEM TARTRATE 07/22/15 [Last Taken 11/04/17] Cholecalciferol Vit D3 [Vitamin D] 11/30/15 [Last Taken 11/30/15] Herbals/Supplements -Info Only 11/30/15 [Last Taken 1 Week Ago ~10/29/17] Simvastatin [Zocor] 11/30/15 [Last Taken 11/04/17] Tizanidine HCl 11/30/15 [Last Taken 11/04/17] - NPO status NPO Since - Liquids (Date): 11/05/17 NPO Since - Liquids (Time): 08:00 NPO Since - Solids (Date): 11/04/17 NPO Since - Solids (Time): 21:00 - Anes Hx Anes Hx: no prior problems - Smoking Hx Smoking Status: Former smoker - Family Anes Hx Family Hx Anesthesia Complications: none ANE Labs/Vital Signs - Vital Signs Blood Pressure: 110/77 Heart Rate: 66 Respiratory Rate: 14 O2 Sat (%): 97 Height: 180.34 cm Weight: 88.451 kg ANE Physical Exam - Airway Neck exam: FROM Mallampati Score: Class 2 - Pulmonary Pulmonary: no respiratory distress - Cardiovascular Cardiovascular: regular rate and rhythym - ASA Status ASA Status: III ANE Anesthesia Plan Anesthesia Plan: general endotracheal anesthesia
[2017-11-05] MEDS ORDERED: MIDAZOLAM 2 MG/2 ML VIAL ONE (13:35)
[2017-11-05 13:48] LABS: PLATELET COUNT 136 10^3/uL (150-400)
[2017-11-05] MEDS ORDERED: fentaNYL 250 MCG/5 ML INJ ONE (13:48)
[2017-11-05] MEDS ORDERED: PROPOFOL 200 MG/20 ML VIAL ONE (13:48)
[2017-11-05] MEDS ORDERED: SUGAMMADEX SODIUM 200 MG/2 ML VIAL IVP ONE (15:14)
[2017-11-05] MEDS ORDERED: ONDANSETRON 4 MG/2 ML VIAL IVP PRN ×2 (15:24→15:56)
[2017-11-05] MEDS ORDERED: HYDROmorphone HCL/NS 0.5 MG/ML SYR IVP PRN ×2 (15:24→23:29)
[2017-11-05] MEDS ORDERED: ACETAMINOPHEN 325 MG TAB PO PRN (15:24)
[2017-11-05] MEDS ORDERED: POTASSIUM Cl (KCl) 10 MEQ in D5W 1/2 NS 1,000 ML IV SCH (15:30)
--- NOTE | 2017-11-05 15:30 | POSTOPPROG ---
Post Op Note Date of Operation: 11/05/17 Surgeon: Jamaal Simeon Retail Planner: Ziyad Anesthesiologist: Warm Anesthesia: GET(General Endotracheal) Pre-op Diagnosis: BPH Procedure: SP prostatectomy Inf/Abcess present in the surg proc area at time of surgery?: No EBL: 50-100 Drains: Raymundo Hoover, Other (SP cath and palomares) Specimen(s): sent--dictated
[2017-11-05] MEDS ORDERED: PROMETHAZINE HCL 25 MG/ML INJ IVP PRN (15:56)
[2017-11-05] MEDS ORDERED: NALOXONE HCL 0.4 MG/ML INJ IVP PRN (15:56)
--- NOTE | 2017-11-05 15:56 | POSTANESTH ---
Post Anesthetic Evaluation Cardiovascular Status: Normal, Stable Respiratory Status: Normal, Stable Level of Consciousness/Mental Status: Can Participate in Eval Pain Control: Adequate, Prn Tx Ordered Nausea/Vomiting Control: Adequate, Prn Tx Ordered Complications Possibly Related to Anesthesia: None Noted
--- NOTE | 2017-11-05 16:00 | GOP ---
[f rep st] OPERATIVE REPORT DATE OF OPERATION: 11/05/2017 SURGEON: Jamaal Simeon MD DIRECTOR OF PRODUCT DEVELOPMENT: Nancy Lackey CFA. ANESTHESIA: General anesthesia. ANESTHESIOLOGIST: Dr. Ennis PREOPERATIVE DIAGNOSIS: Benign prostatic hypertrophy with hemorrhagic prostatitis. POSTOPERATIVE DIAGNOSIS: Benign prostatic hypertrophy with hemorrhagic prostatitis. PROCEDURE PERFORMED: Suprapubic prostatectomy. FINDINGS: SPECIMENS: Sent to Pathology. ESTIMATED BLOOD LOSS: About 100 cc per Anesthesia. DESCRIPTION OF PROCEDURE: After appropriate general anesthesia and appropriate time-out, he had a lo wer midline incision carried down through skin and linea alba into the space of Retzius. Bladder was opened and clot in the bladder was evacuated, and then at that point, could identify the bladder nec k, which was incised with electrocautery and enucleated the prostate, and then at the end, we tied of f the bleeding vessels with the 7 and 5 o'clock positions in the bladder neck, and at that point was able to pass a 24 three-way catheter in the bladder and 100 cc balloon inflated, traction placed, irr igated as well, and then, he had a suprapubic catheter placed and the bladder was closed in 2 layers using 2-0 Vicryl an 0 Vicryl. It was tested and noted to be watertight. The drain was sewn in place with a 3-0 Vicryl at the bladder site and a 3-0 silk at the skin side and traction placed. The spec imen was sent to Pathology. Linea alba approximated with an 0 Vicryl. Subcutaneous tissue hemostati c. Skin alexi placed. Sterile dressing placed. He tolerated the procedure well. COMPLICATIONS: No complications. /[id number]/MODL
[2017-11-05] MEDS ORDERED: fentaNYL 100 MCG/2 ML INJ ONE (16:24)
[2017-11-05] MEDS: fentaNYL 100 MCG/2 ML INJ IVP PRN ×2 (16:26→16:37)
[2017-11-05] MEDS: OPIUM/BELLADONNA ALKALO SUPP PR PRN ×2 (17:13→21:21)
[2017-11-05] MEDS ORDERED: HYDROmorphONE/DILAUDID 1 MG/ML INJ ONE (17:26)
[2017-11-05] MEDS: HYDROmorphONE/DILAUDID 1 MG/ML INJ IVP PRN ×3 (17:28→23:49)
[2017-11-05] MEDS: HYDROCODONE/APAP 5/325 TAB PO PRN (19:44)
[2017-11-05] MEDS ORDERED: HYDROmorphONE/DILAUDID 1 MG/ML INJ IVP PRN (22:00)
[2017-11-05] MEDS: ZOLPIDEM TARTRATE 5 MG TAB PO PRN (22:46)
[2017-11-05] MEDS: D5W LR 1,000 ML IV SCH (23:53)
[2017-11-06] MEDS: KETOROLAC 15 MG/1 ML SDV IVP PRN ×2 (01:10→13:16)
[2017-11-06] MEDS: ONDANSETRON DISINTEGRATING 4 MG TAB PO PRN ×2 (01:16→05:44)
[2017-11-06] MEDS: HYDROmorphONE/DILAUDID 1 MG/ML INJ IVP PRN ×7 (01:52→18:40)
[2017-11-06] MEDS: OPIUM/BELLADONNA ALKALO SUPP PR PRN ×4 (05:05→22:48)
--- NOTE | 2017-11-06 05:22 | PDMN ---
Medical Necessity Medical necessity: [facility] IP only surgery, cpt 30610 Urologic Surgery ( Suprapubic Prostatectomy)
[2017-11-06 05:25] LABS: PLATELET COUNT 138 10^3/uL (150-400)
[2017-11-06] MEDS: D5W LR 1,000 ML IV SCH ×2 (06:33→14:52)
--- NOTE | 2017-11-06 10:22 | ASMTCMCOM ---
CM Note CM Note Notes: Chart reviewed for discharge planning purposes. Patient s/p surgical resection of his prostate. He is and lives in [place]. Needs TBD. CM to follow. Plan: TBD Date Signed: 11/06/2017 10:22 AM Electronically Signed By:Kay Mccain RN
--- NOTE | 2017-11-06 11:05 | SOAPPROG ---
SOAP Progress Note Assessment/Plan: Assessment: BPH associated with nocturia Acute POD 1 SP prostatectomy, no complaints Congestion of prostate with hemorrhage Acute Plan: continue post op care due to bleeding and pain control 11/06/17 11:03 Subjective: doing well Objective: Vital Signs Temp Pulse Resp BP Pulse Ox 36.4 C 66 16 103/59 L 94 11/06/17 07:54 11/06/17 07:54 11/06/17 07:54 11/06/17 07:54 11/06/17 06:00 Laboratory Results 11/06/17 04:40 11/06/17 04:40 11/05/17 11/06/17 11/07/17 05:59 05:59 05:59 Intake Total 3100 Output Total 1435 Balance 1665 Physical Exam - Physical Exam General Appearance: alert Neck: supple Respiratory: No respiratory distress Cardiac/Chest: regular rate, rhythm Abdomen: soft Male Genitalia: other (normal with palomares and SP noted) Back: No CVA tenderness Skin: warm/dry Extremities: No calf tenderness, No Rai's sign Neuro/Psych: oriented x 3 ICD10 Worksheet Patient Problems: Problems Problem Status Onset BPH associated with nocturia Acute Congestion of prostate with hemorrhage Acute Near syncope Acute - ICD10 Problem Qualifiers (1) BPH associated with nocturia (2) Congestion of prostate with hemorrhage
[2017-11-06] MEDS: HYDROCODONE/APAP 5/325 TAB PO PRN (21:29)
[2017-11-06] MEDS: ZOLPIDEM TARTRATE 5 MG TAB PO PRN (22:49)
[2017-11-07] MEDS: HYDROCODONE/APAP 5/325 TAB PO PRN ×4 (01:48→21:09)
[2017-11-07] MEDS: KETOROLAC 15 MG/1 ML SDV IVP PRN (08:00)
[2017-11-07] MEDS: OPIUM/BELLADONNA ALKALO SUPP PR PRN ×3 (08:10→23:32)
--- NOTE | 2017-11-07 12:19 | SOAPPROG ---
SOAP Progress Note Assessment/Plan: Assessment: BPH associated with nocturia Acute POD 2 SP prostatectomy, no complaints Congestion of prostate with hemorrhage Acute Plan: continue post op care , dc EMILY and CBI and consider dc in am or this PM if pt and can care for catheters 11/07/17 12:18 Subjective: doing well Objective: Vital Signs Temp Pulse Resp BP Pulse Ox 37.0 C 68 18 92/56 L 93 11/07/17 11:05 11/07/17 11:05 11/07/17 11:05 11/07/17 11:05 11/07/17 11:05 Laboratory Results 11/06/17 04:40 11/06/17 04:40 11/06/17 11/07/17 11/08/17 05:59 05:59 05:59 Intake Total 3100 2550 995 Output Total 1435 1160 1125 Balance 1665 1390 -130 Physical Exam - Physical Exam General Appearance: alert Neck: supple Respiratory: No respiratory distress Cardiac/Chest: edema Abdomen: soft Male Genitalia: other (cath ok and normal genitals) Back: No CVA tenderness Skin: warm/dry Neuro/Psych: alert, oriented x 3 ICD10 Worksheet Patient Problems: Problems Problem Status Onset BPH associated with nocturia Acute Congestion of prostate with hemorrhage Acute Near syncope Acute - ICD10 Problem Qualifiers (1) BPH associated with nocturia (2) Congestion of prostate with hemorrhage
[2017-11-07] MEDS: ZOLPIDEM TARTRATE 5 MG TAB PO PRN (23:33)
[2017-11-08] MEDS: HYDROCODONE/APAP 5/325 TAB PO PRN ×3 (05:29→22:41)
[2017-11-08] MEDS: OPIUM/BELLADONNA ALKALO SUPP PR PRN ×5 (05:52→22:43)
[2017-11-08] MEDS ORDERED: BISACODYL 10 MG SUPP PR PRN (08:21)
[2017-11-08] MEDS ORDERED: MAGNESIUM HYDROXIDE 30 ML UDCUP PO PRN (08:21)
[2017-11-08] MEDS ORDERED: LACTULOSE 20 GM/30 ML UDCUP PO PRN (08:21)
[2017-11-08] MEDS ORDERED: POLYETHYLENE GLYCOL 3350 17 GM PKT PO PRN (08:21)
[2017-11-08] MEDS: PHENAZOPYRIDINE HCL 100 MG TAB PO PRN ×3 (08:54→22:41)
[2017-11-08] MEDS: SENNOSIDES/DOCUSATE SODIUM TAB PO SCH ×2 (08:55→22:40)
--- NOTE | 2017-11-08 09:33 | SOAPPROG ---
SOAP Progress Note Assessment/Plan: Assessment: BPH associated with nocturia Acute POD 3 SP prostatectomy, no complaints Congestion of prostate with hemorrhage Acute Plan: continue post op care , bladder spasms and some mild hematuria, will consider DC palomares in AM and then consider dc after, may need home health to assist in care for SP tube 11/08/17 09:31 Subjective: bladder spasms Objective: Vital Signs Temp Pulse Resp BP Pulse Ox 36.6 C 74 18 114/65 94 11/08/17 08:21 11/08/17 08:21 11/08/17 08:21 11/08/17 08:21 11/08/17 08:21 Laboratory Results 11/06/17 04:40 11/06/17 04:40 11/07/17 11/08/17 11/09/17 05:59 05:59 05:59 Intake Total 2550 2295 Output Total 1160 7315 575 Balance 3740 -0710 -575 Physical Exam - Physical Exam General Appearance: alert Neck: supple Respiratory: No respiratory distress Cardiac/Chest: regular rate, rhythm Abdomen: soft Back: No CVA tenderness Extremities: No calf tenderness Neuro/Psych: alert, oriented x 3 ICD10 Worksheet Patient Problems: Problems Problem Status Onset BPH associated with nocturia Acute Congestion of prostate with hemorrhage Acute Near syncope Acute - ICD10 Problem Qualifiers (1) BPH associated with nocturia (2) Congestion of prostate with hemorrhage
[2017-11-08] MEDS: ZOLPIDEM TARTRATE 5 MG TAB PO SCH ×2 (10:23→22:42)
[2017-11-08] MEDS: PANTOPRAZOLE SODIUM 40 MG TAB PO SCH (10:29)
[2017-11-08] MEDS: METOPROLOL SUCCINATE XR 25 MG TAB PO SCH (10:29)
[2017-11-08] MEDS: KETOROLAC 15 MG/1 ML SDV IVP PRN (14:12)
[2017-11-09] MEDS: HYDROCODONE/APAP 5/325 TAB PO PRN ×2 (03:32→08:40)
[2017-11-09] MEDS: OPIUM/BELLADONNA ALKALO SUPP PR PRN ×2 (03:33→08:37)
[2017-11-09 04:32] LABS: PLATELET COUNT 126 10^3/uL (150-400)
[2017-11-09] MEDS: METOPROLOL SUCCINATE XR 25 MG TAB PO SCH (08:32)
[2017-11-09] MEDS: PANTOPRAZOLE SODIUM 40 MG TAB PO SCH (08:34)
[2017-11-09] MEDS: SENNOSIDES/DOCUSATE SODIUM TAB PO SCH (08:34)
[2017-11-09] MEDS ORDERED: ATORVASTATIN CALCIUM 10 MG TAB PO SCH (09:00)
[2017-11-09] MEDS ORDERED: CALCIUM CARBONATE 500 MG TAB PO SCH (09:00)
[2017-11-09] MEDS ORDERED: CHOLECALCIFEROL VIT D3 1,000 UNITS TAB PO SCH (09:00)
--- NOTE | 2017-11-09 09:19 | SOAPPROG ---
SOAP Progress Note Assessment/Plan: Assessment: BPH associated with nocturia Acute POD 4 SP prostatectomy, no complaints, path benign, discussed post op anemia and not to be rxed at this time Congestion of prostate with hemorrhage Acute Plan: continue post op care , bladder spasms and some mild hematuria, will DC palomares this AM and then consider dc after, may need home health to assist in care for SP tube 11/09/17 17:45 Subjective: good night, cath out and no spasms, dc home with sp cath Objective: Vital Signs Temp Pulse Resp BP Pulse Ox 36.4 C 71 16 101/69 94 11/09/17 08:15 11/09/17 08:20 11/09/17 08:15 11/09/17 08:20 11/09/17 08:15 Laboratory Results 11/09/17 04:22 11/09/17 04:22 11/08/17 11/09/17 11/10/17 05:59 05:59 05:59 Intake Total 2295 1950 Output Total 3823 1325 1375 Balance -5020 625 -1375 Physical Exam - Physical Exam General Appearance: alert Neck: supple Respiratory: No respiratory distress Cardiac/Chest: regular rate, rhythm Abdomen: soft Extremities: No calf tenderness Neuro/Psych: alert ICD10 Worksheet Patient Problems: Problems Problem Status Onset BPH associated with nocturia Acute Congestion of prostate with hemorrhage Acute Near syncope Acute - ICD10 Problem Qualifiers (1) BPH associated with nocturia (2) Congestion of prostate with hemorrhage
--- NOTE | 2017-11-09 12:03 | ASMTCMCOM ---
CM Note CM Note Notes: Chart reviewed, patient will need C RN to assist with care of supra-pubic catheter. I have provided him with a list of Home Care agencies serving [facility]. He and his will discuss them and make a choice later today. CM to follow. Plan: Home with [facility] Date Signed: 11/09/2017 12:03 PM Electronically Signed By:Kay Mccain RN
[2017-11-09 15:54] VITALS: BP 95/63
--- NOTE | 2017-11-09 18:05 | GDS ---
[f rep st] DISCHARGE SUMMARY ADMISSION DIAGNOSIS: Benign prostatic hypertrophy with hemorrhagic prostatitis. DISCHARGE DIAGNOSIS: Benign prostatic hypertrophy with hemorrhagic prostatitis. PATHOLOGY: Benign. HOSPITAL COURSE: The gentleman was an a.m. admission, had a suprapubic prostatectomy. He is dischar [facility] home on 11/09/2017 with a suprapubic catheter placed. None of his pre-admission medications have been altered other than discontinuing his finasteride. A narcotic postop was provided. At the present time he will see me on , and at that point, consider clamping his SP tube to s ee if can void spontaneously. /[id number]/MODL
== END 2017-11-09 18:49 | disposition home or self-care (01) | DRG 708 ==
LOC: F1N 11:12
PROVIDERS: ADMIT Specialist; ATTEND Specialist
PROC: 0VT00ZZ Resection of Prostate, Open Approach (ICD-10-PCS; principal; 2017-11-05 12:30)
DX: N40.1 Benign prostatic hyperplasia with lower urinary tract symptoms (principal); N41.9 Inflammatory disease of prostate, unspecified; Z85.038 Personal history of other malignant neoplasm of large intestine; I10 Essential (primary) hypertension; K21.9 Gastro-esophageal reflux disease without esophagitis
CPT/HCPCS: 97116-GP; 97161-GP; 97530-GP; G8978-GP-CI; G8979-GP-CH; G8980-GP-CI; J0690; J1170; J1885; J2250; J2704; J3010

== ENCOUNTER 2017-12-05 08:57 | Emergency (ER) | payer OTHER, MEDICARE ==
--- NOTE | 2017-12-05 09:35 | EDPHY ---
General Time Seen by Provider: 12/05/17 09:24 Narrative: CHIEF COMPLAINT: Cloudy urine HISTORY OF PRESENT ILLNESS: Patient presents with complaints of cloudy urine. This started yesterday for 5 days ago. He says that he did not think much of it until he talks to his about it. She was concerned because he had a prostatectomy 1 month ago. He has no dysuria or abdominal pain. No flank pain. No fever. No obvious blood in the urine. No trauma or injury. He does have a secondary complaint of partial opening of the lower portion of his incision. The spouse states that it began to open a few days ago, that she has been putting a Tegaderm over it. He has had some itching at the site but no pain. He does not take any anticoagulants. No constipation. No other associated complaints or modifying factors REVIEW OF SYSTEMS: Ten systems reviewed and are negative unless otherwise noted in the HPI PCP: Dr. Dee Napier SPECIALISTS: Dr. Simeon, urology Dr. Chapa, oncology Dr. Kwon, general surgery Pulmonology PAST MEDICAL HISTORY: Colon cancer with multiple areas of metastasis, dysrhythmia, prostate cancer, anxiety, dyslipidemia, reflux, insomnia PAST SURGICAL HISTORY: TURP, prostatectomy, left lung lobectomy, partial hepatic resection SOCIAL HISTORY: Never smoker. Lives here independently with his spouse. Retired FAMILY HISTORY: Noncontributory EXAMINATION General Appearance: Alert, no distress Head: normocephalic, atraumatic Eyes: Pupils equal and round, no conjunctival pallor or injection ENT, Mouth: Mucous membranes moist Neck: Normal inspection, supple, non-tender Respiratory: Lungs are clear to auscultation Cardiovascular: Regular rate and rhythm Gastrointestinal: Abdomen is soft and nontender. No tympany rigidity. No guarding. No palpable mass. There is a suprapubic surgical incision that has a 2 cm area of dehiscence inferiorly. There is exposure of subcutaneous tissue but I do not appreciate preperitoneal fat. I did not probe the wound. There is no surrounding cellulitis, the wound appears clean without impaction Back: non-tender, no bony abnormalities Neurological: A&O, nonfocal, normal gait Skin: Warm and dry, no rash. Surgical incision changes as above. Extremities: Nontender, no pedal edema Psychiatric: Mood and affect normal DIFFERENTIAL DIAGNOSES: Including but not limited to postoperative changes, incisional dehiscence, urinary tract infection, dehydration MDM: 9:30 a.m. Turbidity of urine with lack of fever, flank pain or dysuria. There is no gross hematuria. He is concerned because he did have a total prostatectomy 1 month ago. He does have some mild dehiscence of the lower portion of his incision. I do not appreciate any preperitoneal fat, but given recent surgery I do feel he warrants imaging to rule out any compromise of the peritoneum. I have ordered CT scan for this. Urinalysis is pending. 10:30 a.m. CBC unremarkable. Chemistry unremarkable. Urinalysis does have some protein, blood, white cells leukocyte esterase. 11:15 a.m. Notified by radiologist Dr. Zhang. We discussed the findings of the CT scan abdomen pelvis. This includes possible dehiscence of the incision into the peritoneum with some fluid collection and anterior to the bladder and retro to the rectus sheath. There is also abnormal appearance of the surgical bed as documented. He recommends surgical consultation with the urologist. 12:00 p.m. Case discussed with urologist Dr. Rush. We discussed the patient's history , recent surgery, CT scan physical exam findings. He informed me that the information provided to the radiologist by me is not entirely correct. Patient underwent a partial prostatectomy, thus the appearance of the wound but is consistent with the radiologist interpretation without likely infection. He also informs me that he does not feel that the wound has dehisced to the peritoneum given the lack of infection appearance over the incision. He requested the patient be placed on a wet to dry dressing of the incisional wound and placed on Keflex empirically. He requested the patient return to emergency department for any fever, abdominal pain, difficulty urinating. I discussed this with the patient the spouse and they are comfortable this plan and very happy to do so. They informed me that they already have an appointment on Thursday morning with the surgeon that will keep this. ED precautions discussed and he is discharged home stable condition. SUPERVISION: Patient was independently examined, but I discussed the case with my secondary supervising physician Dr. Austin - Diagnostics Imaging Results: Imaging Impressions Abdomen CT 12/05/17 09:48 Impression: 1. Status post midline pelvic incision with a focal fluid collection along the ventral aspect of the lower rectus abdominis musculature, postsurgical hematoma versus abscess. 2. Prior prostate surgery, with surgical resection of the central aspect of the prostate. The prosthetic urethra appears dilated.. 3. Status post partial hepatectomy with resection of the left hepatic lobe. Multiple hepatic cysts, unchanged. 4. Minimal right nephrolithiasis. 5. Degenerative/posttraumatic changes within the lower thoracic and lumbar spine. Results called to Louis Luque PA-C at 11:20 a.m. Imaging: Discussed imaging studies w/ winter sports manager Radiologist, I viewed and interpreted images myself - History History Review: I reviewed the patient's medical records Smoking Status: Former smoker - Objective Vital Signs: Initial Vital Signs Temperature (C) 97.3 F 12/05/17 09:01 Heart Rate 68 12/05/17 09:01 Respiratory Rate 18 12/05/17 09:01 Blood Pressure 137/94 H 12/05/17 09:01 O2 Sat (%) 96 12/05/17 09:01 O2 Delivery Mode Room Air Allergies/Adverse Reactions: No Allergies [NKDA] Allergy (Verified 12/05/17 08:58) Home Medications: Medication Instructions Recorded Calcium Carbonate [Oyster Shell 500 mg PO DAILY 07/22/15 Calcium 500 mg (*)] Cholecalciferol Vit D3 [Vitamin D3 1,000 units PO DAILY 07/22/15 (*)] METOPROLOL SUCCINATE 12.5 mg PO DAILY 07/22/15 Omeprazole [Prilosec 20 mg] 20 mg PO DAILY 07/22/15 ZOLPIDEM TARTRATE 5 mg PO HS 07/22/15 Cholecalciferol Vit D3 [Vitamin D3 1,000 units PO DAILY 11/30/15 (*)] Simvastatin [Zocor] 20 mg PO HS 11/30/15 Tizanidine HCl 4 mg PO HS 11/30/15 Hydrocodone/APAP 5/325 [[place] 1 - 2 tab PO Q4HRS PRN #20 tab 11/07/17 5/325 (*)] Cephalexin [Keflex (*)] 500 mg PO QID #36 cap 12/05/17 Laboratory Results: Laboratory Results 12/05/17 10:05 12/05/17 10:05 12/05/17 12/05/17 12/05/17 10:14 10:05 10:05 WBC RBC Hgb POC Hgb 11.9 gm/dL L gm/dL (13.7-17.5) Hct POC Hct 35 % L % (40-51) MCV MCH MCHC RDW Plt Count MPV Neut % (Auto) Lymph % (Auto) [place] % (Auto) Eos % (Auto) Baso % (Auto) Nucleat RBC Rel Count Absolute Neuts (auto) Absolute Lymphs (auto) Absolute Monos (auto) Absolute Eos (auto) Absolute Basos (auto) Absolute Nucleated RBC Immature Gran % Immature Gran # PT 13.2 SEC SEC (12.0-15.0) INR 0.98 (0.83-1.16) APTT 23.6 SEC SEC (23.0-38.0) POC Sodium 140 mEq/L mEq/L (135-145) Sodium 137 mEq/L mEq/L (135-145) POC Potassium 4.1 mEq/L mEq/L (3.3-5.0) Potassium 4.8 mEq/L mEq/L (3.3-5.0) POC Chloride 106 mEq/L mEq/L (97-110) Chloride 106 mEq/L mEq/L (97-110) Carbon Dioxide 22 mEq/l mEq/l (22-31) Anion Gap 9 mEq/L mEq/L (8-16) POC BUN 18 mg/dL mg/dL (7-23) BUN 17 mg/dL mg/dL (7-23) Creatinine 0.8 mg/dL mg/dL (0.7-1.3) POC Creatinine 0.8 mg/dL mg/dL (0.7-1.3) Estimated GFR > 60 Glucose 99 mg/dL mg/dL (70-100) POC Glucose 106 mg/dL H mg/dL (70-100) Calcium 8.4 mg/dL L mg/dL (8.5-10.4) Specimen Hemolysis 114 Urine Color Urine Appearance Urine pH Ur Specific [place] Urine Protein Urine Ketones Urine Blood Urine Nitrate Urine Bilirubin Urine Urobilinogen Ur Leukocyte Esterase Urine RBC Urine WBC Ur Epithelial Cells Urine Bacteria Urine Mucus Urine Glucose 12/05/17 12/05/17 10:05 09:00 WBC 5.62 10^3/uL 10^3/uL (3.80-9.50) RBC 3.57 10^6/uL L 10^6/uL (4.40-6.38) Hgb 11.1 g/dL L g/dL (13.7-17.5) POC Hgb Hct 33.6 % L % (40.0-51.0) POC Hct MCV 94.1 fL fL (81.5-99.8) MCH 31.1 pg pg (27.9-34.1) MCHC 33.0 g/dL g/dL (32.4-36.7) RDW 13.2 % % (11.5-15.2) Plt Count 115 10^3/uL L 10^3/uL (150-400) MPV 9.4 fL fL (8.7-11.7) Neut % (Auto) 59.0 % % (39.3-74.2) Lymph % (Auto) 24.4 % % (15.0-45.0) [place] % (Auto) 10.5 % % (4.5-13.0) Eos % (Auto) 5.5 % % (0.6-7.6) Baso % (Auto) 0.2 % L % (0.3-1.7) Nucleat RBC Rel Count 0.0 % % (0.0-0.2) Absolute Neuts (auto) 3.32 10^3/uL 10^3/uL (1.70-6.50) Absolute Lymphs (auto) 1.37 10^3/uL 10^3/uL (1.00-3.00) Absolute Monos (auto) 0.59 10^3/uL 10^3/uL (0.30-0.80) Absolute Eos (auto) 0.31 10^3/uL 10^3/uL (0.03-0.40) Absolute Basos (auto) 0.01 10^3/uL L 10^3/uL (0.02-0.10) Absolute Nucleated RBC 0.00 10^3/uL 10^3/uL (0-0.01) Immature Gran % 0.4 % % (0.0-1.1) Immature Gran # 0.02 10^3/uL 10^3/uL (0.00-0.10) PT INR APTT POC Sodium Sodium POC Potassium Potassium POC Chloride Chloride Carbon Dioxide Anion Gap POC BUN BUN Creatinine POC Creatinine Estimated GFR Glucose POC Glucose Calcium Specimen Hemolysis Urine Color YELLOW Urine Appearance MODERATELY TURBID Urine pH 5.0 (5.0-7.5) Ur Specific [place] 1.010 (1.002-1.030) Urine Protein 2+ H (NEGATIVE) Urine Ketones NEGATIVE (NEGATIVE) Urine Blood 2+ H (NEGATIVE) Urine Nitrate NEGATIVE (NEGATIVE) Urine Bilirubin NEGATIVE (NEGATIVE) Urine Urobilinogen NEGATIVE EU EU (0.2-1.0) Ur Leukocyte Esterase 3+ H (NEGATIVE) Urine RBC 50-182 /hpf H /hpf (0-3) Urine WBC 50-182 /hpf H /hpf (0-3) Ur Epithelial Cells NONE SEEN /lpf /lpf (NONE-1+) Urine Bacteria 2+ /hpf H /hpf (NONE SEEN) Urine Mucus 1+ /lpf /lpf (NONE-1+) Urine Glucose NEGATIVE (NEGATIVE) Medications Given: Discontinued Medications Cephalexin HCl (Keflex) 500 mg PO EDNOW ONE PRN Reason: Protocol Stop: 12/05/17 12:01 Last Admin: 12/05/17 12:04 Dose: 500 mg Point of Care Test Results: Chemistry 12/05/17 10:14 POC Sodium 140 mEq/L mEq/L (135-145) POC Potassium 4.1 mEq/L mEq/L (3.3-5.0) POC Chloride 106 mEq/L mEq/L (97-110) POC BUN 18 mg/dL mg/dL (7-23) POC Creatinine 0.8 mg/dL mg/dL (0.7-1.3) POC Glucose 106 mg/dL H mg/dL (70-100) ISTAT H&H 12/05/17 10:14 POC Hgb 11.9 gm/dL L gm/dL (13.7-17.5) POC Hct 35 % L % (40-51) Departure - Departure Disposition: Home, Routine, Self-Care Clinical Impression: Wound dehiscence, surgical Qualifiers: Encounter type: initial encounter Qualified Code(s): T81.31XA - Disruption of external operation (surgical) wound, not elsewhere classified, initial encounter Condition: Good Instructions: Surgical Site Infections (ED), Wound Healing and Your Diet (ED) Additional Instructions: 1. Keep a wet to dry dressing in place on your incision at all times. Apply sterile saline to the 1st layer of gauze and dry gauze. 2. Keflex by mouth 4 times daily as prescribed 3. Keep your appointment on Thursday with your urologist 4. Return here for any abdominal pain, fever, signs of infection at the incision , difficulty urinating Referrals: RONI NAPIER [Other] - As per Instructions Jamaal Simeon MD [Medical Doctor] - As per Instructions Prescriptions: Cephalexin [Keflex (*)] 500 mg PO QID #36 cap
[2017-12-05 10:19] LABS: PLATELET COUNT 115 10^3/uL (150-400)
[2017-12-05] MEDS ORDERED: IOPAMIDOL (ISOVUE-300) 100 ML BTL ONE (10:22)
[2017-12-05 10:27] LABS: INR 0.98 (0.83-1.16); PROTIME(PATIENT) 13.2 SEC (12.0-15.0)
[2017-12-05 11:46] VITALS: BP 109/73
[2017-12-05] MEDS ORDERED: CEPHALEXIN 500 MG CAP PO ONE (12:00)
== END 2017-12-05 12:13 | disposition home or self-care (01) ==
DX: T81.31XA Disruption of external operation (surgical) wound, not elsewhere classified, initial encounter (principal); Z85.038 Personal history of other malignant neoplasm of large intestine; Z85.46 Personal history of malignant neoplasm of prostate; Z87.891 Personal history of nicotine dependence; Y82.9 Unspecified medical devices associated with adverse incidents
CPT/HCPCS: 74177; 99285; Q9967; 82435-PO; 82565-PO; 82947-PO; 84132-PO; 84295-PO; 84520-PO; 85014-PO

== ENCOUNTER 2018-11-18 07:30 | Emergency (ER) | payer OTHER, MEDICARE | END 2018-11-18 08:28 | disposition home or self-care (01) ==